=== PATIENT | male | born 1950 | race Caucasian/White ===

== ENCOUNTER 2018-02-10 13:38 | Emergency (ER) | payer BC, MEDICARE ==
[2018-02-10 13:54] VITALS: BP 187/104
--- NOTE | 2018-02-10 14:24 | RAD ---
INDICATION: Left ankle pain COMPARISON: None TECHNIQUE: AP, lateral, and oblique views were obtained. FINDINGS: There are no acute bony findings. The ankle mortise is intact. Soft tissues are normal. Still note is made of a plantar calcaneal spur. IMPRESSION: HEEL SPUR
--- NOTE | 2018-02-10 15:47 | UC ---
Jamey Stewart Thomas, scribed for Ben Hernandez MD on 02/10/18 at 1359 . Lower Extremity/Ankle HPI - HPI Summary HPI Summary: The patient is a 67 year old male complaining of left ankle pain after twisting his ankle on a rock two days ago. The pain worsened yesterday. The pain is rated 3/10. He complains of some swelling to his ankle. He has been treating the symptoms with ice, ibuprofen, and elevation. - History of Current Complaint Chief Complaint: UCLowerExtremity Stated Complaint: ANKLE INJURY Time Seen by Provider: 02/10/18 13:45 Hx Obtained From: Patient Onset/Duration: Lasting Days - 2 days ago, Still Present, Worse Since - 1 day ago Severity Currently: Moderate Pain Intensity: 3 Pain Scale Used: 0-10 Numeric Aggravating Factor(s): Ambulation Alleviating Factor(s): Elevation, Ice, OTC Meds - ibuprofen Related History: Other - Suspects twisted on ankle - Allergies/Home Medications Allergies/Adverse Reactions: Allergies Allergy/AdvReac Type Severity Reaction Status Date / Time ampicillin Allergy Rash Verified 02/10/18 13:56 Penicillins Allergy See Comment Verified 02/10/18 13:56 MYCINS Allergy Unknown Uncoded 05/05/16 14:13 Reaction Details Home Medications: Home Medications Aspirin 81 mg PO DAILY 02/10/18 [History Confirmed 02/10/18] Ibuprofen TAB* [Advil TAB*] 400 mg PO Q6H PRN 02/10/18 [History Confirmed ] PMH/Surg Hx/FS Hx/Imm Hx Previously Healthy: No - DM, GERD, Hep C - Surgical History Surgical History: Yes Surgery Procedure, Year, and Place: tonsilectomy. knee surgery - Family History Known Family History: Positive: Diabetes - Social History Alcohol Use: Rare Alcohol Amount: red wine/daily Substance Use Type: None Smoking Status (MU): Current Some Day Smoker Type: Cigars Amount Used/How Often: rarely Have You Smoked in the Last Year: Yes Review of Systems Constitutional: Negative - fever Musculoskeletal: Other: - Left ankle pain, swelling Is Patient Immunocompromised?: No All Other Systems Reviewed And Are Negative: Yes Physical Exam - Summary Physical Exam Summary: VITAL SIGNS: Reviewed. GENERAL: Patient is a well-developed and nourished male who is lying comfortable in the stretcher. Patient is not in any acute respiratory distress. HEAD AND FACE: Normocephalic EYES: PERRLA, EOMI x 2. EARS: Hearing grossly intact. MOUTH: Oropharynx within normal limits. NECK: Supple, trachea is midline, no adenopathy, no JVD, no carotid bruit. CHEST: Symmetric, no tenderness at palpation LUNGS: Clear to auscultation bilaterally. No wheezing or crackles. CVS: Regular rate and rhythm, S1 and S2 present, no murmurs or gallops appreciated. ABDOMEN: Soft, non-tender. Bowel sounds are normal. No abdominal abnormal pulsations. EXTREMITIES: There is not any ecchymosis or deformity. There is some swelling, especially to the left lateral malleolus. Full ROM in all major joints, no edema , no cyanosis or clubbing. NEURO: Alert and oriented x 3. No acute neurological deficits. Speech is normal and follows commands. SKIN: Dry and warm Triage Information Reviewed: Yes Vital Signs: Initial Vital Signs Temp 97.5 F 02/10/18 13:47 Pulse 71 02/10/18 13:47 Resp 16 02/10/18 13:47 BP 187/104 02/10/18 13:47 Pulse Ox 99 02/10/18 13:47 Vital Signs Reviewed: Yes Diagnostics - Radiology Ankle XR Xray Interpretation: Positive (See Comments) - Impression: "Heel spur". Interpreted by radiologist. Radiology Interpretation Completed By: Radiologist Lower Extremity Course/Dx - Course Course Of Treatment: The patient is a 67 year old male complaining of left ankle pain after twisting his ankle on a rock two days ago. The pain worsened yesterday. The pain is rated 3/10. He complains of some swelling to his ankle. He has been treating the symptoms with ice, ibuprofen, and elevation. Ankle XR shows a heel spur. The patient is diagnosed with ankle sprain. The patient was found to have increased BP in UC. The patient will follow up with PCP for better control of BP. I discussed all the findings and test results with the patient. Patient was instructed to return to the urgent care or go to ER immediately if any of the symptoms return or worsen. Plan of care was discussed with the patient, and patient understands and agrees. All questions were answered to patient satisfaction. There were no further complaints or concerns. - Differential Dx/Diagnosis Provider Diagnoses: Ankle Sprain Discharge - Sign-Out/Discharge Documenting (check all that apply): Discharge - Discharge Plan Condition: Stable Disposition: HOME Patient Education Materials: Ankle Sprain (ED) Referrals: Juancho Reyes MD [Primary Care Provider] - Additional Instructions: FOLLOW UP WITH YOUR PRIMARY CARE PROVIDER WITHIN ONE WEEK FOR HIGH BLOOD PRESSURE NOTED TODAY. RETURN TO URGENT CARE OR THE EMERGENCY DEPARTMENT FOR ANY WORSENING OR NEW SYMPTOMS. The documentation as recorded by the Jamey yeager Thomas accurately reflects the service I personally performed and the decisions made by David manzanares Walter, MD.
== END 2018-02-10 14:34 | disposition home or self-care (01) ==
LOC: UCEAST 13:38
DX: S93.402A Sprain of unspecified ligament of left ankle, initial encounter (principal); X50.1XXA Overexertion from prolonged static or awkward postures, initial encounter; Y93.9 Activity, unspecified; Y92.9 Unspecified place or not applicable; Z88.1 Allergy status to other antibiotic agents; Z88.0 Allergy status to penicillin; Z72.0 Tobacco use
CPT/HCPCS: 99211; G0463

== ENCOUNTER 2019-05-01 07:59 | Day surgery (SDC) | payer MEDICARE, BC ==
[~2019-05-01 07:59] MED LIST: Acetaminophen TAB* 325 MG PO PRN; Buffered Lidocaine 1% SYRIN* 1 ML/SYRINGE INTRADERM ONE
[2019-05-01] MEDS ORDERED: fentaNYL* 50 MCG/ML 2 ML VIAL (100 MCG VIAL) ONE (09:03)
[2019-05-01] MEDS ORDERED: Midazolam* 1 MG/ML 2 ML VIAL (2 MG) ONE (09:03)
[2019-05-01 10:29] VITALS: BP 136/83
--- NOTE | 2019-05-01 10:54 | OP ---
DATE OF OPERATION: 05/01/19 [facility] DATE OF : 50 SURGEON: Dr. Jeremias Lemon. CORPORATE RECEPTIONIST: None. ANESTHESIA: Topical with intravenous sedation. PRE-OP DIAGNOSIS: Cataract with astigmatism, left eye. POST-OP DIAGNOSIS: Cataract with astigmatism, left eye. OPERATIVE PROCEDURE: Phacoemulsification and cataract extraction with posterior chamber intraocular toric lens implant, left eye. COMPLICATIONS: None. BLOOD LOSS: None. DESCRIPTION OF PROCEDURE: The patient was brought to the operating room and received intravenous sedation. A drop of Tetracaine was placed into his left eye. The patient was prepped and draped in the usual sterile fashion for ophthalmic surgery and attention was directed to the left eye where a speculum was placed. A paracentesis was created at the 5 o'clock position and 0.1 cc of 1% preservative- free lidocaine was injected into the anterior chamber followed by DisCoVisc. The eye was digitally stabilized while a 2.75 mm keratome was used to create a triplanar clear corneal incision at the 3 o'clock position. A continuous curvilinear capsulorrhexis was created with a cystotome and Utrata forceps. BSS on a cannula was used to hydrodissect the lens from the capsule. Phacoemulsification was performed in a [id number] technique to create four fragments which were removed. Residual cortical material was removed with irrigation and aspiration. The capsular bag was polished. The capsular bag and the anterior chamber were filled with Provisc. The eye pressure was measured with a tonometer. The surface of the eye was lubricated. The ORA device was employed to guide the lens choice. The reticle on the ORA helped align the lens placement. An SN6AT4 17.5 diopter lens was folded and inserted into the capsular bag. It was dialed to the 140 degree axis. The lens was stabilized with a Sinskey hook through the paracentesis while irrigation and aspiration were performed to remove viscoelastic from the eye. The Sinskey hook was removed. BSS on a cannula was used to hydrate the corneal stroma and seal the wound. At the end of the case, the pupil was round. The lens was centered stable and axial line. The eye pressure appeared normal and the wound was water tight. The speculum was removed and topical Maxitrol ointment was placed on the surface of the eye. The eye was closed, patched and shielded and the patient was sent to the recovery room in stable condition with postoperative instructions and follow-up appointment given. [id number]/[facility] #: [id number] GOPI
[2019-05-01] MEDS ORDERED: Tetracaine 0.5% OPTH.SOL 4 ML* 1 DROP BTL ONE (15:34)
[2019-05-01] MEDS ORDERED: Tropicamide 1% OPTH.SOL* BTL ONE (15:34)
[2019-05-01] MEDS ORDERED: Lidocaine 1% MPF ** 5 ML VIAL ONE (15:34)
[2019-05-01] MEDS ORDERED: Phenylephrine OPHTH SOL 2.5%* 2 ML ONE (15:34)
[2019-05-01] MEDS ORDERED: Neomycin/Polymy/Dex OPHTH.OIN* 3.5 GM ONE (15:34)
[2019-05-01] MEDS ORDERED: Cyclopentolate 1% OPTH.SOL* 2 ML BTL ONE (15:34)
[2019-05-01] MEDS ORDERED: Ketorolac 0.5% OPHTH (NF) 0.5 % 5 ML BTL ONE (15:34)
== END 2019-05-01 10:25 | disposition home or self-care (01) ==
LOC: OREAST 07:59
PROVIDERS: ATTEND Ophthalmology
DX: H25.12 Age-related nuclear cataract, left eye (principal); H52.202 Unspecified astigmatism, left eye; R73.03 Prediabetes; I10 Essential (primary) hypertension; K21.9 Gastro-esophageal reflux disease without esophagitis; K22.70 Barrett's esophagus without dysplasia
CPT/HCPCS: A9270-GY; J2250; J3010; V2787

== ENCOUNTER 2019-05-08 07:46 | Day surgery (SDC) | payer MEDICARE, BC ==
[2019-05-08] MEDS ORDERED: fentaNYL* 50 MCG/ML 2 ML VIAL (100 MCG VIAL) ONE (07:57)
[2019-05-08] MEDS ORDERED: Midazolam* 1 MG/ML 2 ML VIAL (2 MG) ONE (07:57)
--- NOTE | 2019-05-08 09:37 | OP ---
DATE OF OPERATION: 05/08/19 LOC[facility]IN [facility] DATE OF : 50 SURGEON: Dr. Jeremias Lemon ANTHROPOLOGY INSTRUCTOR: None. ANESTHESIA: Topical with intravenous sedations. PRE-OP DIAGNOSIS: Cataract with astigmatism, right eye. POST-OP DIAGNOSIS: Cataract with astigmatism, right eye. OPERATIVE PROCEDURE: Phacoemulsification and cataract extraction with posterior chamber toric intraocular lens implant, right eye. COMPLICATIONS: None. BLOOD LOSS: None. DESCRIPTION OF PROCEDURE: The patient was brought to the operating room and received intravenous sedation. A drop of tetracaine was placed in his right eye. The patient was prepped and draped in the usual sterile fashion for ophthalmic surgery. Attention was directed to the right eye, where a speculum was placed. A paracentesis was created at the 11 o'clock position and 0.1 cc of 1% perseverative- free lidocaine was injected into the anterior chamber followed by DisCoVisc. The eye was digitally stabilized while a 2.75 mm keratome was used to create a triplanar clear corneal incision at the 9 o'clock position. A continuous curvilinear capsulorrhexis was created with a cystotome and Utrata forceps. BSS on a cannula was used to hydrodissect the lens from the capsule. Phacoemulsification was performed in a [id number] technique to create 4 fragments, which were removed. Residual cortical material was removed with irrigation and aspiration. The capsular bag was polished. The eye was inflated with Provisc. Intraocular pressure was measured with a tonometer. The surface of the eye was lubricated with BSS. The ORA device was employed to guide the lens choice. An SN6AT3 17.0 diopter lens was folded and inserted into the capsular bag. The reticle on the ORA guided the axial alignment to 31 degrees. The lens was rotated to this position with a Sinskey hook. The lens was stabilized with a Sinskey hook through the paracentesis. Irrigation and aspiration was performed to remove viscoelastic from the eye. The Sinskey hook was removed. BSS on a cannula was used to hydrate the corneal stroma and seal the wound. At the end of the case, the pupil was round, the lens was centered, stable in axial line. The eye pressure appeared normal and the wound was watertight. The speculum was removed and topical Maxitrol ointment was placed on the surface of the eye. The eye was closed, patched and shielded, and the patient was sent to the recovery room in stable condition with postoperative instructions and a followup appointment given. [id number]/[facility] #: [id number] GOPI
[2019-05-08 09:42] VITALS: BP 143/84
[2019-05-08] MEDS ORDERED: Neomycin/Polymy/Dex OPHTH.OIN* 3.5 GM ONE (12:09)
[2019-05-08] MEDS ORDERED: Ketorolac 0.5% OPHTH (NF) 0.5 % 5 ML BTL ONE (12:09)
[2019-05-08] MEDS ORDERED: Tetracaine 0.5% OPTH.SOL 4 ML* 1 DROP BTL ONE (12:09)
[2019-05-08] MEDS ORDERED: Tropicamide 1% OPTH.SOL* BTL ONE (12:09)
[2019-05-08] MEDS ORDERED: Lidocaine 1% MPF ** 5 ML VIAL ONE (12:09)
[2019-05-08] MEDS ORDERED: Phenylephrine OPHTH SOL 2.5%* 2 ML ONE (12:09)
[2019-05-08] MEDS ORDERED: Cyclopentolate 1% OPTH.SOL* 2 ML BTL ONE (12:09)
== END 2019-05-08 09:25 | disposition home or self-care (01) ==
LOC: OREAST 07:46
PROVIDERS: ATTEND Ophthalmology
DX: H25.11 Age-related nuclear cataract, right eye (principal); H52.201 Unspecified astigmatism, right eye; R73.03 Prediabetes; I10 Essential (primary) hypertension; Z72.0 Tobacco use; K21.9 Gastro-esophageal reflux disease without esophagitis; K22.70 Barrett's esophagus without dysplasia; F32.9 Major depressive disorder, single episode, unspecified
CPT/HCPCS: A9270-GY; J2250; J3010; V2787

== ENCOUNTER 2024-08-25 16:23 | Inpatient (IN) ==
[2024-08-25 17:44] LABS: ABS Eosinophils 0.1 10^3/uL (0.0-0.5); ABS Lymphocytes 0.5 10^3/uL (1.0-4.8); ABS Monocytes 0.4 10^3/uL (0.0-1.1); ABS Neutrophils 3.8 10^3/uL (1.5-7.6); Eosinophil % 2.1 %; Hematocrit 39.9 % (38-53); Hemoglobin 13.6 g/dL (13.2-16.3); Lymphocyte % 9.5 %; Mean Corpuscular Hemoglobin 32.3 pg (27-33); Mean Corpuscular Hgb Conc 34.1 g/dL (31-36); Mean Corpuscular Volume 94.7 fL (80-97); Mean Platelet Volume 8.3 fL (7.5-11.2); Platelet Count 149 10^3/uL (150-450); Red Blood Count 4.21 10^6/uL (4.06-5.63); Red Cell Distribution Width 16.2 % (12-17); White Blood Count 4.9 10^3/uL (3.6-10.2)
[2024-08-25 18:23] LABS: Albumin 4.1 g/dL (3.2-5.2); Albumin/Globulin Ratio 2.2 (1-3); C Reactive Protein 4.51 mg/L (<8.01); Calcium 8.7 mg/dL (8.6-10.3); Creatinine, Serum 0.87 mg/dL (0.67-1.17); Globulin 1.9 g/dL (2-4); Potassium 3.7 mmol/L (3.5-5.0); Total Bilirubin 0.8 mg/dL (0.2-1.0); eGFR CKD-EPI 90.5 (>60)
[2024-08-25] MEDS: Morphine 4 MG/ML VIAL (1 ml) IV ONE (19:00)
[2024-08-25] MEDS: Ondansetron 4 mg VIAL 2 MG/ML 2 ml VIAL IV ONE (19:00)
[2024-08-25 19:19] LABS: Urine Appearance Clear; Urine Bacteria Absent /HPF (Absent); Urine Bilirubin Negative (Negative); Urine Blood Negative (Negative); Urine Color Light-Yellow; Urine Glucose 4+ (>=1000 mg/dL) (Negative); Urine Ketones 1+ (Negative); Urine Nitrite Negative (Negative); Urine Protein 1+ (>=30 mg/dL) (Negative); Urine Red Blood Cell 2+(6-10/hpf) /HPF (0-Trace); Urine Squamous Epithelial Cell Present /HPF (Absent); Urine Urobilinogen Negative (Negative); Urine White Blood Cell Trace(0-5/hpf) /HPF (0-Trace)
[2024-08-25 19:27] LABS: High Sensitivity Troponin 1 Hr 58 pg/mL (<20)
[2024-08-25] MEDS ORDERED: Sulfur Hexaflouride MICROSPHR 25 MG VIAL IV PRN (23:17)
[2024-08-25] MEDS: Aspirin EC 81 mg TAB.EC (enteric coated) PO SCH (23:22)
[2024-08-25] MEDS: Enoxaparin 40 MG/0.4 ML SYR SUBCUT SCH (23:43)
[2024-08-26 00:24] LABS: HDL Cholesterol 64.7 mg/dL
[2024-08-26] MEDS: Senna TAB 8.6 mg TAB PO PRN (00:44)
[2024-08-26] MEDS: Polyethylene Glycol 3350 17 GM PACKET PO PRN (00:44)
[2024-08-26] MEDS ORDERED: Dextrose 50% Syringe 50 ml 25 GM/50 ML SYRINGE IV PUSH PRN (03:43)
[2024-08-26 06:06] LABS: ABS Eosinophils 0.1 10^3/uL (0.0-0.5); ABS Lymphocytes 0.5 10^3/uL (1.0-4.8); ABS Monocytes 0.4 10^3/uL (0.0-1.1); ABS Neutrophils 2.8 10^3/uL (1.5-7.6); Eosinophil % 2.6 %; Hematocrit 38.2 % (38-53); Hemoglobin 12.8 g/dL (13.2-16.3); Lymphocyte % 11.8 %; Mean Corpuscular Hemoglobin 31.7 pg (27-33); Mean Corpuscular Hgb Conc 33.6 g/dL (31-36); Mean Corpuscular Volume 94.5 fL (80-97); Mean Platelet Volume 8.1 fL (7.5-11.2); Nucleated Red Blood Cells % 0.1 %/100WBC (0.0-0.8); Platelet Count 142 10^3/uL (150-450); Red Blood Count 4.04 10^6/uL (4.06-5.63); Red Cell Distribution Width 16.4 % (12-17); White Blood Count 3.8 10^3/uL (3.6-10.2)
[2024-08-26 06:44] LABS: Calcium 8.2 mg/dL (8.6-10.3); Creatinine, Serum 0.87 mg/dL (0.67-1.17); Magnesium 1.9 mg/dL (1.9-2.7); Potassium 3.8 mmol/L (3.5-5.0); eGFR CKD-EPI 90.5 (>60)
[2024-08-26] MEDS: NF:Lenalidomide 10 mg CAP (NF) PO SCH (09:18)
[2024-08-26] MEDS: oxyCODONE SR 10 mg TAB PO SCH (11:38)
[2024-08-26] MEDS: Magnesium Hydroxide LIQ 30 ML UDC PO SCH (11:39)
[2024-08-26] MEDS: Lidocaine PATCH 5% PATCH TRANSDERM SCH (17:34)
[2024-08-27 06:39] LABS: ABS Eosinophils 0.1 10^3/uL (0.0-0.5); ABS Lymphocytes 0.6 10^3/uL (1.0-4.8); ABS Monocytes 0.6 10^3/uL (0.0-1.1); ABS Neutrophils 3.7 10^3/uL (1.5-7.6); ABS Nucleated RBC 0.01 10^3/ul; Hematocrit 37.1 % (38-53); Hemoglobin 12.7 g/dL (13.2-16.3); Lymphocyte % 11.4 %; Mean Corpuscular Hemoglobin 32.5 pg (27-33); Mean Corpuscular Hgb Conc 34.2 g/dL (31-36); Mean Corpuscular Volume 95.1 fL (80-97); Mean Platelet Volume 8.2 fL (7.5-11.2); Nucleated Red Blood Cells % 0.2 %/100WBC (0.0-0.8); Platelet Count 143 10^3/uL (150-450); Red Cell Distribution Width 15.9 % (12-17)
[2024-08-27 06:56] LABS: Calcium 7.9 mg/dL (8.6-10.3); Creatinine, Serum 0.92 mg/dL (0.67-1.17); Magnesium 2.4 mg/dL (1.9-2.7); Potassium 3.8 mmol/L (3.5-5.0); eGFR CKD-EPI 87.3 (>60)
[2024-08-27] MEDS ORDERED: fentaNYL 250 mcg/5 ml 50 MCG/ML 5 ml VIAL (250 MCG) ONE (07:47)
[2024-08-27] MEDS ORDERED: Midazolam 5 mg/5 ml VIAL 1 mg/ml 5 ml VIAL (5 mg) ONE (07:47)
[2024-08-27] MEDS: Sulfamethox/Trimethoprim DS TAB 800/160 mg PO SCH (08:00)
[2024-08-27] MEDS: Senna TAB 8.6 mg TAB PO SCH (08:00)
[2024-08-27] MEDS: Polyethylene Glycol 3350 17 GM PACKET PO SCH (08:01)
[2024-08-27] MEDS: oxyCODONE SR 20 mg TAB PO SCH (12:25)
[2024-08-28 05:36] LABS: ABS Eosinophils 0.1 10^3/uL (0.0-0.5); ABS Lymphocytes 0.8 10^3/uL (1.0-4.8); ABS Monocytes 0.6 10^3/uL (0.0-1.1); Eosinophil % 2.3 %; Hematocrit 38.1 % (38-53); Hemoglobin 13.2 g/dL (13.2-16.3); Lymphocyte % 14.4 %; Mean Corpuscular Hgb Conc 34.7 g/dL (31-36); Mean Corpuscular Volume 95.1 fL (80-97); Nucleated Red Blood Cells % 0.1 %/100WBC (0.0-0.8); Platelet Count 146 10^3/uL (150-450); Red Blood Count 4.01 10^6/uL (4.06-5.63); Red Cell Distribution Width 16.5 % (12-17); White Blood Count 5.6 10^3/uL (3.6-10.2)
[2024-08-28 05:56] LABS: Calcium 8.2 mg/dL (8.6-10.3); Creatinine, Serum 1.2 mg/dL (0.67-1.17); Magnesium 2.9 mg/dL (1.9-2.7); Phosphorus 3.6 mg/dL (2.5-5.0); Potassium 3.9 mmol/L (3.5-5.0); eGFR CKD-EPI 63.5 (>60)
[2024-08-28] MEDS: Lactated Ringers 1000 ml BAG 1,000 ML IV SCH ×2 (08:38→09:23)
[2024-08-28] MEDS: Pneumococcal 20-Valent Conj 0.5 ML SYR Vaccine IM ONE (09:02)
[2024-08-28 09:06] VITALS: BP 112/86
== END 2024-08-28 13:23 | disposition home or self-care (01) | DRG 65 ==
LOC: ED 16:23 → EDHOLD 16:23 → SUATTDRO 21:39 → MEDTELE 08-26 01:19
PROVIDERS: ADMIT Internal Medicine; ATTEND Student in an Organized Health Care Education/Training Program